=== PATIENT | female | born 1990 | race Caucasian/White ===

== ENCOUNTER 2017-09-23 18:29 | Emergency (ER) | payer OTHER ==
[2017-09-23 19:46] VITALS: BP 98/46
--- NOTE | 2017-09-24 22:26 | UC ---
Ginger Melissa Gabriel, scribed for Jv Andres MD on 09/23/17 at 2031 . HPI BURN - HPI Summary HPI Summary: This patient is a 27 year old F presenting to [facility] [place] accompanied by her son with a chief complaint of a burn to her left forearm that occurred 5 days ago. The patient rates the pain 5/10 in severity. Patient denies fever. Pt was cooking when she splashed hot oil on to her arm. - History of Current Complaint Chief Complaint: UCBurn Stated Complaint: BURN ON ARM Hx Obtained From: Patient Hx Last Menstrual Period: 09/23/2017 Occurred: Days Ago - 5 Length of Exposure: Unknown Onset Severity: Severe Current Severity: Moderate Pain Intensity: 5 Pain Scale Used: 0-10 Numeric Location: LUE Character: Scald Associated Signs & Symptoms: Positive: Negative - fever - Allergy/Home Medications Allergies/Adverse Reactions: Allergies Allergy/AdvReac Type Severity Reaction Status Date / Time No Known Allergies Allergy Verified 09/23/17 19:40 Home Medications: Home Medications NK [No Home Medications Reported] 09/23/17 [History Confirmed 09/23/17] PMH/Surg Hx/FS Hx/Imm Hx Previously Healthy: Yes Other History Of: Negative For: HIV, Hepatitis B, Hepatitis C - Surgical History Surgical History: Yes Surgery Procedure, Year, and Place: Appendectomy 2000 - Family History Known Family History: Negative: Cardiac Disease, Hypertension, Diabetes, Renal Disease, Respiratory Disease, Seizure Disorder, Blood Disorder - Social History Lives: With Family Alcohol Use: None Substance Use Type: None Smoking Status (MU): Never Smoked Tobacco Review of Systems Constitutional: Negative - fever Skin: Other - burn All Other Systems Reviewed And Are Negative: Yes Physical Exam Triage Information Reviewed: Yes Vital Signs: Initial Vital Signs Temp 99.2 F 09/23/17 19:40 Pulse 86 09/23/17 19:40 Resp 18 09/23/17 19:40 BP 98/46 09/23/17 19:40 Pulse Ox 99 09/23/17 19:40 - Additional Comments VITAL SIGNS: Reviewed. GENERAL: Patient is a well developed and nourished F who is lying comfortable in the stretcher. Patient is not in any acute respiratory distress. HEAD AND FACE: Normocephalic EYES: PERRLA, EOMI x 2. EARS: Hearing grossly intact. MOUTH: Oropharynx within normal limits. NECK: Supple, trachea is midline, no adenopathy, no JVD, no carotid bruit. CHEST: Symmetric, no tenderness at palpation LUNGS: Clear to auscultation bilaterally. No wheezing or crackles. CVS: Regular rate and rhythm, S1 and S2 present, no murmurs or gallops appreciated. ABDOMEN: Soft, non-tender. Bowel sounds are normal. No abdominal abnormal pulsations. EXTREMITIES: Full ROM in all major joints, no edema, no cyanosis or clubbing. NEURO: Alert and oriented x 3. No acute neurological deficits. Speech is normal and follows commands. SKIN:4, 1in circular 1st degree [place] on the left forearm Burn Calculation - [place] Formula for Fluid Resuscitation Weight: 54.431 kg 24 -Hour Fluid Replacement: 0.0 Course/Dx Burn - Course Course Of Treatment: This patient is a 27 year old F presenting to [facility] [place] accompanied by her son with a chief complaint of a burn to her left forearm that occurred 5 days ago. The patient rates the pain 5/10 in severity. Patient denies fever. Pt was cooking when she splashed hot oil on to her arm. Pt was instructed to return to the urgent care or go to ER immediately if any of the symptoms return or worsens. Plan of care was discussed with the patient and pt understands and agrees. All questions were answered to patient satisfaction. There were no further complaints or concerns. The wound is clean no sign of infection I applied Bactrian and it was bandaged to keep it clean. Patient will be diagnosed with 1st degree burn, discharged, and follow up from PCP. The patient is agreeable with this plan. - Diagnoses Clinic Provider Diagnoses: 1st degree burn Discharge - Discharge Plan Condition: Stable Disposition: HOME Patient Education Materials: Superficial Burn (DC) Referrals: [facility] [place] PHYSICIAN REFERRAL [Outside] No Primary Care Phys,NOPCP [Primary Care Provider] - The documentation as recorded by the Ginger bagley Gabriel accurately reflects the service I personally performed and the decisions made by , Jv Andres MD.
== END 2017-09-23 21:15 | disposition home or self-care (01) ==
LOC: UCEAST 18:29
DX: T22.112A Burn of first degree of left forearm, initial encounter (principal); X10.2XXA Contact with fats and cooking oils, initial encounter; Y93.G3 Activity, cooking and baking; Y92.9 Unspecified place or not applicable
CPT/HCPCS: 99201; G0463

== ENCOUNTER 2018-11-08 17:18 | Emergency (ER) | payer MEDICAID, OTHER ==
--- NOTE | 2018-11-08 17:30 | UC ---
Dental HPI - HPI Summary HPI Summary: 28 yo female presents with multiple complaints: 1) She tells me that over the last few weeks she has been having intermittent pain in a tooth on the left lower side. Pain is worse with eating hard or cold foods. She has been taking ibuprofen for the pain with good relief. She called her dentist and has an appointment tomorrow regarding this, but says she is worried about sleeping tonight due to the pain - prompting her visit to . 2) Over the last few weeks has had an intermittent bump on the back of her right ear. It will be painful for a few days before she is able to pop it and have relief. Currently there is no pain or bump 3) B/L rash on forearms for the last 3 months with no improvement. She has not applied any creams. Mildly itchy. Denies fever, chills. - History of Current Complaint Stated Complaint: TOOTHACHE Time Seen by Provider: 11/08/18 17:24 Hx Obtained From: Patient Hx Last Menstrual Period: 09/23/2017 Onset/Duration: Gradual Onset Severity: Moderate Pain Intensity: 7 Pain Scale Used: 0-10 Numeric - Allergies/Home Medications Allergies/Adverse Reactions: Allergies Allergy/AdvReac Type Severity Reaction Status Date / Time No Known Allergies Allergy Verified 09/23/17 19:40 PMH/Surg Hx/FS Hx/Imm Hx - Additional Past Medical History Additional PMH: None Other History Of: Negative For: HIV, Hepatitis B, Hepatitis C - Surgical History Surgical History: Yes Surgery Procedure, Year, and Place: Appendectomy 2000 - Family History Known Family History: Negative: Cardiac Disease, Hypertension, Diabetes, Renal Disease, Respiratory Disease, Seizure Disorder, Blood Disorder - Social History Lives: With Family Alcohol Use: None Substance Use Type: None Smoking Status (MU): Never Smoked Tobacco Review of Systems All Other Systems Reviewed And Are Negative: Yes Constitutional: Positive: Negative Skin: Positive: Rash Eyes: Positive: Negative ENT: Positive: Dental Pain Respiratory: Positive: Negative Cardiovascular: Positive: Negative Gastrointestinal: Positive: Negative Neurovascular: Positive: Negative Neurological: Positive: Negative Psychological: Positive: Negative Physical Exam - Summary Physical Exam Summary: GENERAL: NAD. WDWN. No pain distress. SKIN: Posterior right ear: Mild dry skin/eczema. B/L dorsal forearms with scattered mild maculopapular rash at the base of hair. NTTP. No open wounds, streaking, drainage. NECK: Supple. Nontender. No lymphadenopathy. HEENT: Head: AT/NC Ears: Hearing grossly normal. TMs intact, no bulging, erythema, or edema. Nose: Nasal mucosa pink and moist. NTTP maxillary and frontal sinus. Throat: Posterior oropharynx without exudates, erythema, or tonsillar enlargement. Uvula midline. CHEST: No accessory muscle use. Breathing comfortably and in no distress. CV: Pulses intact. Cap refill <2seconds NEURO: Alert. PSYCH: Age appropriate behavior. Triage Information Reviewed: Yes Vital Signs: Vital Signs: Temp Pulse Resp BP Pulse Ox 98.6 F 77 20 104/67 100 11/08/18 17:27 11/08/18 17:27 11/08/18 17:27 11/08/18 17:27 11/08/18 17:27 Vital Signs Reviewed: Yes Dental: Positive: Percussion Tenderness @ - Tooth #19. Negative: Gross Decay/ Caries @, Dental Fracture @, Abscess @, Cellulitis @, Cervical Lymphadenopathy, Bleeding Dental Complaint Course/Dx - Course Course Of Treatment: Regarding her tooth pain - there is no evidence of infection or abscess at this time. Given the clinical history, I suspect this is likely a dental caries or nerve irritation. Will treat her pain with a lidocaine mouth rinse and have her keep her appt tomorrow with her dentist for further evaluation. Regarding the dry skin behind her right ear - there is no evidence of infection or abscess/ cyst/blister. Suspect this is dry skin and will treat her with aquaphor. Regarding the rash on her b/l arms - this appears most consistent with folliculitis and I will treat her with keflex and refer her to dermatology if her symptoms do not improve. - Differential Dx/Diagnosis Provider Diagnosis: Pain, dental, Folliculitis, Dry skin Discharge - Sign-Out/Discharge Documenting (check all that apply): Patient Departure All imaging exams completed and their final reports reviewed: No Studies - Discharge Plan Condition: Stable Disposition: HOME Prescriptions: Cephalexin CAP* [Keflex CAP*] 500 mg PO BID #14 cap Lidocaine 2% VISCOUS* [Xylocaine 2% Viscous*] 15 ml SWISH SPIT Q6H PRN #1 btl PRN Reason: Pain Petrolatum,White [Aquaphor] 20 gm TP BID #1 jar Patient Education Materials: Folliculitis (ED), Toothache (ED), Dermatitis (ED) Referrals: No Primary Care Phys,NOPCP [Primary Care Provider] - Scott Thurman MD [Medical Doctor] - If Needed Additional Instructions: If you develop a fever, shortness of breath, chest pain, new or worsening symptoms - please call your PCP or go to the ED. 1) Please keep your appointment with your dentist tomorrow as you do not appear to have an infection - this is likely a pain from the tooth it's self. 2) Try the cream on the back of your ear 3) Take the keflex for your suspected folliculitis on your arms. If this does not improve - please follow up with dermatology - Billing Disposition and Condition Condition: STABLE Disposition: Home
[2018-11-08 17:34] VITALS: BP 104/67
== END 2018-11-08 17:58 | disposition home or self-care (01) ==
LOC: UCEAST 17:18
DX: K08.89 Other specified disorders of teeth and supporting structures (principal); L73.9 Follicular disorder, unspecified; L98.8 Other specified disorders of the skin and subcutaneous tissue
CPT/HCPCS: 99202; G0463